=== PATIENT | male | born 1940 | race Caucasian/White ===

== ENCOUNTER 2019-09-02 08:10 | Day surgery (SDC) | payer MEDICARE, OTHER, BC ==
[2019-09-02] VITALS (7 sets, daily range): BP systolic 114–154; BP diastolic 57–76; PULSE 52–57; TEMP 97.6
[~2019-09-02] VITALS: Ht 171.4 cm; Wt 77.6 kg
[2019-09-02] MEDS ORDERED: CRESTOR40 MG PO (08:54)
[2019-09-02] MEDS ORDERED: ZETIA 10MG TAB10 MG PO (08:54)
[2019-09-02] MEDS ORDERED: COZAAR100 MG PO (08:55)
[2019-09-02] MEDS ORDERED: PRILOSEC 20MG20 MG PO (08:55)
[2019-09-02] MEDS ORDERED: TOPROL XL 25MG25 MG PO (08:55)
[2019-09-02 08:56] LABS: BASO % 0.2 % (0.0-2.0); EOS # 0.1 (0.0-0.7); EOS % 1.5 % (0-4.0); GRAN # 4.3 (1.4-6.5); GRAN % 72.9 % (42.2-75.2); HEMATOCRIT 45.5 % (42.0-52.0); HEMOGLOBIN 14.8 g/dl (13.5-18.0); LYMPH % 17.6 % (20.0-51.0); MEAN CELL VOLUME 96 fl (80.0-100.0); MEAN CORPUSCULAR HEMOGLOBIN 31 pg (27.0-31.0); MEAN CORPUSCULAR HGB CONC 33 g/dl (33.0-37.0); MEAN PLATELET VOLUME 10.4 fl (7.4-10.4); MONO # 0.4 (0.1-0.6); MONO % 7.5 % (1.7-9.3); PLATELET COUNT 168 K/mm3 (130-400); RED BLOOD COUNT 4.74 M/mm3 (4.20-5.60); REDCELL DISTRIBUTION WIDTH-CV 13.7 % (11.5-14.5)
[2019-09-02] MEDS ORDERED: ARICEPT10 MG PO (08:56)
--- NOTE | 2019-09-02 09:04 | NUR ---
TO RM AT 0821- CALL LIGHT IN REACH DAUGHTER AT BEDSIDE.
--- NOTE | 2019-09-02 09:20 | NUR ---
PULLED MED LIST FROM MED CLAIM HISTORY. PATIENT NOT BRINGING A LIST OF HIS MEDS.
--- NOTE | 2019-09-02 12:50 | NUR ---
Patient returns to room 1 per cart accompanied by Natali RN and Enrique Suarez RN. Patient is unresponsive to painful stimuli and on oxygen at 6L per mask and oral airway in place. IV infusing and siderails up x2. Siderails up x2 and staff in room.
--- NOTE | 2019-09-02 13:03 | NUR ---
Airway removed by Enrique Suarez CRNA. Makes facial frowns with sternal rub and jaw movement.
--- NOTE | 2019-09-02 13:05 | NUR ---
Remains on oxygen at 6L per mask. Will continue to monitor and stay at bedside.
--- NOTE | 2019-09-02 13:12 | NUR ---
Opens eyes to verbal stimuli now and states that he is sore. Placed on oxygen at 2L per nasal cannula and sats maintained at 100%. Call light in reach and allowed to rest. Siderails up x2.
[2019-09-02] MEDS ORDERED: MOTRIN 600600 MG/TAB PO (13:19)
[2019-09-02] MEDS ORDERED: NORCO 325 MG-51 TAB PO (13:19)
--- NOTE | 2019-09-02 13:20 | NUR ---
Moving all extremities and states that he just wants to sleep. IV fluids infusing and allowed to rest.
--- NOTE | 2019-09-02 13:30 | NUR ---
SLEEPING QUIETLY AND AWAKENS EASILY. REPOSITIONED UP IN BED AND RECEIVED WATER AT BEDSIDE.
--- NOTE | 2019-09-02 13:45 | NUR ---
PATIENT TURNED SELF TO SIDE AND BACK TO SLEEP.
--- NOTE | 2019-09-02 14:00 | NUR ---
MORE AWAKE AND TALKING TO DAUGHTER.
--- NOTE | 2019-09-02 14:10 | NUR ---
REPSOITIONED UP IN BED. RECEIVED COFFEE, OJ AND MUFFIN.
--- NOTE | 2019-09-02 14:25 | NUR ---
STOOD AT BEDSIDE AND VOIDED INTO A URINAL 200CC LIGHT YELLOW URINE.
--- NOTE | 2019-09-02 14:40 | NUR ---
C/O INCREASED PAIN 04/16 AND RECEIVED NORCO 5MG 1 TAB.
--- NOTE | 2019-09-02 15:22 | NUR ---
PATIENT DAUGHTER CAME TO DESK AND STATED HER FATHER IS STILL HURTING. SHE STATED HE NEVER HURTS. PATIENT CONTINUES TO C/O PAIN 04/16. RECEIVED MOTRIN 600MG PO PATIENT TURNED TO SIDE AND SAID HE WOULD REST A WHILE.
--- NOTE | 2019-09-02 15:45 | NUR ---
PATIENT STATED HE WAS READY TO GO HOME. DISCONTINUED IV AND INT- CATHETER INTACT
--- NOTE | 2019-09-02 15:50 | NUR ---
ASSISTED PATIENT DRESSED. RECEIVED DISCHARGE INSTRUCTIONS AND VERBALIZED UNDERSTANDING
--- NOTE | 2019-09-02 15:59 | NUR ---
DISCHARGED PER WC BY NURSING STAFF TO PRIVATE CAR IN CARE OF ALBERTO POLK.
== END 2019-09-02 16:01 | disposition home or self-care (01) ==
LOC: SDCO 08:10
PROVIDERS: Surgery
DX: K40.20 Bilateral inguinal hernia, without obstruction or gangrene, not specified as recurrent (principal); K21.9 Gastro-esophageal reflux disease without esophagitis; I25.2 Old myocardial infarction; G47.33 Obstructive sleep apnea (adult) (pediatric); I10 Essential (primary) hypertension; Z90.49 Acquired absence of other specified parts of digestive tract; Z79.891 Long term (current) use of opiate analgesic; Z80.0 Family history of malignant neoplasm of digestive organs
CPT/HCPCS: C1781; J0690; J2250; J2704; J2795